=== PATIENT | male | born 1955 | race Caucasian/White ===

== ENCOUNTER 2020-07-05 12:21 | Outpatient (CLI) | payer MEDICARE, SELFPAY ==
--- NOTE | 2020-07-05 12:39 | USCV_ITS ---
Stress Echo Epifanio Rogers Age: 64 Gender: M : 1955 Exam Date: 07/05/2020 13:25 Ordering Phys: Tiana Quach Technologist: Giovanna Morin Exam Location: [facility] – [place] Indication: Chest Pain Rhythm: Sinus Patient History: Chest pain Cardiac Medications: No cardiac medications Medications in past 24 hours: No cardiac medications Contrast: Stress Results Protocol: Alvaro Total dose(mL): Exercise Duration (min:sec): 07:54 METS: 10.2 Resting HR: 71 Resting BP: 154 / 87 Peak HR: 138 Peak BP: 206 / 96 Max Predicted HR: 155 89 % Max Predicted HR Target HR: 132 Double Product: 30272 Stress Summary: The patient's target heart rate was achieved The hemodynamic response to exercise was normal BP Response: Normal Reason for Termination: Test terminated after reaching target heart rate (85% max predicted) Cardiac Symptoms: Short of Breath ECG Analysis Resting ECG: Stress ECG: Arrhythmia: MEASUREMENTS (Male/Female) Normal Values FINDINGS Baseline echocardiogram: Normal left ventricular size and systolic function with ejection fraction estimated at 55%. Normal right ventricular size and systolic function. Peak exercise echocardiogram: Augmentation of baseline left ventricular systolic function at peak exercise. No new regional wall motion abnormality with stress. Recovery echocardiogram: Left ventricular systolic function returned back to near normal. No new regional wall motion abnormality noted. CONCLUSIONS 1. This is an exercise stress echocardiogram. 2. Patient exercised for 7 minutes 54 seconds and reached 10.2 METS. 3. Normal resting echocardiogram. There were no stress-induced wall motion abnormalities. 4. EKG portion of the study would be reported separately. Ivett Stafford MD (Electronically Signed) Final Date: 08 July 2020 17:04 S
[2020-07-05 13:04] VITALS: BMI 40.3
--- NOTE | 2020-07-05 13:04 | ECG_ITS ---
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 Interpretive Statements NAME OF STUDY: TREADMILL STRESS ECHOCARDIOGRAM INDICATION: Chest Pain PROCEDURE: At the baseline, the patient's blood pressure was 154/87 mm Hg with a heart rate of 71 bpm and oxygen saturation of 96%. The baseline electrocardiogram showed normal sinus rhythm, normal axis with possible old septal infarct. The patient exercised for 7 minutes 54 seconds on a [standard Alvaro protocol]. Patient attained a maximum heart rate of 138 beats per minute( 89 % of the maximum predicted heart rate) with a blood pressure at the peak exercise of 158/81 mm Hg and oxygen saturation of 96%. The EKG at the peak exercise revealed sinus tachycardia with no significant ST-T wave changes. Patient did not have any chest pain or any significant EKG changes with the exercise.PVC couplets noted during exercise. During the recovery phase, there were no new changes. Blood pressure at the end of the recovery phase was 182/80 mm Hg with a heart rate of 92 beats per minute and oxygen saturation of 96%. Echocardiographic pictures were taken at the baseline, immediately following the peak exercise and during the recovery phase. CONCLUSION: 1. Normal EKG response to treadmill exercise. 2. No exercise-induced chest pain or cardiac arrhythmia. 3. Good exercise tolerance for age, attained a maximum of 10.2 METs. Maximum VO2 of 35.7 ml/kg/min. 4. Please see separate report for the echocardiographic response to exercise. Electronically Signed On 07-07-2020 21:00:12 CDT by Ivett Stafford M.D. [id number]
[2020-07-05 13:51] VITALS: BP 182/80; PULSE 92
== END 2020-07-05 12:22 | disposition home or self-care (01) ==
LOC: CDL 12:26
PROVIDERS: PCP Nurse Practitioner Family; Visit Provider Nurse Practitioner Family
DX: R07.9 Chest pain, unspecified (principal)
CPT/HCPCS: 93017; 93350

== ENCOUNTER 2020-08-02 07:15 | Outpatient (CLI) | payer MEDICARE, SELFPAY ==
[2020-08-02 07:34] VITALS: BMI 40.3
--- NOTE | 2020-08-02 07:34 | ECG_ITS ---
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 The perfusion scan will be documented separately. DATA: Baseline heart rate was 66 beats per minute. Baseline blood pressure was 137/96 millimeters of mercury. Target heart rate was 155. Maximum heart rate achieved was 81. which was 52 % of the predicted target heart rate. Maximum blood pressure was millimeters of mercury. The reason for ending the test was completion of the protocol. The patient did not experience any symptoms. ELECTROCARDIOGRAM: BASELINE: Sinus rhythm. Normal axis. Otherwise, no ST-T changes suggestive of ischemia noted. No arrhythmia noted. EXERCISE: After Lexiscan injection, no ST-T changes suggestive of ischemic noted. No arrhythmia noted. CONCLUSION: Please note due to baseline abnormality of the EKG specificity and sensitivity of the EKG portion of LexiScan MIBI stress test will be low 1. EKG not suggestive of ischemia 2. Lexiscan injection unremarkable. 3. Perfusion scan will be documented separately. Electronically Signed On 08-03-2020 19:24:26 CDT by NICHOLE LOMELI [email or web address]
--- NOTE | 2020-08-02 07:36 | NMCV_ITS ---
NM marion perf SPECT r/s* [id number] Epifanio Rogers Age: 64 Gender: M : 1955 Exam Date: 08/02/2020 08:53 Ordering Phys: Tiana Quach-Salomón Technologist: MIKE Sotelo Exam Location: [facility] Indications: CHEST PAIN STRESS TEST Please see separate stress test report in [facility] for full findings IMAGE PROTOCOL Rest/Stress 1 Lexiscan Day Radiopharmaceutical Dose (mCi) Administration Site Administered by Rest: Tc-99m 10.9 IV MIKE Sotelo Sestamibi Stress:Tc-99m 32.9 IV Priscilla Kahn, RAIL SIGNAL DESIGNER Sestamibi Rest: 02-Aug-2020 60 Discovery 630 Stress: 02-Aug-2020 30 Discovery 630 0.4mg Lexiscan. Images obtained in supine and prone position. SPECT RESULTS Technical Quality: Excellent Raw Data Analysis: Normal Image Corrections: No attenuation or motion correction applied Summed Stress Score: 2 Summed Rest Score: 3 Summed Difference Score: 1 PERFUSION FINDINGS Large area of fixed perfusion defect noted in basal to distal inferior wall suggestive of old myocardial infarction versus scarring FUNCTIONAL RESULTS (calculated via Gated SPECT) Stress Image LV EF (%): 72 Stress EDV (mL):90 TID: 1.06 Stress ESV (mL):25 Rest Image LV EF (%): 72 FUNCTIONAL FINDINGS: Basal to mid inferior wall akinesis IMPRESSIONS Medium-sized area of old myocardial infarction versus scarring noted in basal to distal inferior wall without eliezer-infarct ischemia. EKG segment was documented separately. Lily Shankar MD (Electronically Signed) Final Date: 02 August 2020 15:43 S
[2020-08-02] MEDS: regadenoson 0.4 Mg/5 ml Syringe IVP (09:42)
[2020-08-02 09:47] VITALS: BP 139/91; PULSE 72
== END 2020-08-02 07:16 | disposition home or self-care (01) ==
LOC: CDL 07:18
PROVIDERS: PCP Nurse Practitioner Family; Visit Provider Nurse Practitioner Family
DX: R07.9 Chest pain, unspecified (principal); I25.2 Old myocardial infarction
CPT/HCPCS: 78452; 93017; A9500; J2785

== ENCOUNTER 2023-03-16 20:00 | Outpatient (CLI) | payer MEDICARE, SELFPAY | END 2023-03-16 20:01 | disposition home or self-care (01) | LOC: SLEEP 03-17 04:12 | PROVIDERS: PCP Nurse Practitioner Family; Visit Provider Nurse Practitioner Family | DX: G47.33 Obstructive sleep apnea (adult) (pediatric) (principal) | CPT/HCPCS: 95811 ==

== ENCOUNTER 2024-02-18 07:28 | Oncology outpatient (recurring) (ONCR) | payer MEDICARE, SELFPAY ==
[2024-02-18 08:00] LABS: Basophils # 0.1 10^3/uL (0.0-0.1); Basophils % 0.9 %; Eosinophils # 0.2 10^3/uL (0.0-0.8); Eosinophils % 4.4 %; Hematocrit 40.4 % (37-53); Lymphocytes % 18.5 %; Mean Corpuscular HGB Conc 33.2 g/dL (30-55); Mean Corpuscular Hemoglobin 29.5 pg (27-33); Mean Platelet Volume 11.8 fL (7.4-10.4); Monocytes # 0.6 10^3/uL (0.2-0.9); Monocytes % 10.6 %; Neutrophils # 3.52 10^3/uL (1.8-7.7); Neutrophils % 65.2 %; Nucleated Red Blood Cells % 0 %; Platelet Count 139 10^3/cmm (157-399); Red Blood Count 4.54 10^6/uL (3.85-5.65); Red Cell Distribution Width 14.1 % (12.1-15.1)
[2024-02-18 09:58] LABS: Alanine Aminotransferase 29 U/L (0-41); Albumin Level 4.3 g/dL (3.5-5.2); Alkaline Phosphatase 82 U/L (40-130); Anion Gap 15.2 (5-19); Aspartate Amino Transferase 23 U/L (0-40); Blood Urea Nitrogen 19 mg/dL (8-23); Calcium 8.8 mg/dL (8.5-10.5); Carbon Dioxide 26 mmol/L (22-29); Chloride 103 mmol/L (98-107); Globulin 1.8 g/dL (1.3-4.6); Glomerular Filtration Rate 50.2 mL/min (90-130); Glucose 112 mg/dL (65-115); Lactate Dehydrogenase 186 U/L (135-225); Osmolality Calculated 293 mOsm/kg (285-295); Potassium 4.2 mmol/L (3.5-5.1); Sodium 140 mmol/L (136-145); Total Bilirubin 0.5 mg/dL (0.15-1.2); Total Protein 6.1 g/dL (6.6-8.7)
== END 2024-03-11 23:59 | disposition home or self-care (01) ==
PROVIDERS: PCP Nurse Practitioner Family; Visit Provider Internal Medicine Hematology & Oncology
DX: D69.6 Thrombocytopenia, unspecified (principal); K21.9 Gastro-esophageal reflux disease without esophagitis; Z79.899 Other long term (current) drug therapy
CPT/HCPCS: 36415; 80053; 83010; 83615; 85025; 99204